=== PATIENT | male | born 2000 | race Hispanic/Latino ===

== ENCOUNTER 2022-04-24 20:33 | Emergency (ER) | payer OTHER ==
[~2022-04-24] VITALS: Ht 162.6 cm; Wt 65.8 kg
[2022-04-24] MEDS ORDERED: KETOROLAC 60 MG VIAL (30MG/ML) IM ONE (21:30)
[2022-04-24] MEDS ORDERED: IBUP-2071 PO (22:01)
[2022-04-24 22:15] VITALS: BP 125/63
== END 2022-04-24 22:18 | disposition home or self-care (01) ==
LOC: EDH 20:33
DX: S00.33XA Contusion of nose, initial encounter (principal); S80.01XA Contusion of right knee, initial encounter; V49.59XA Passenger injured in collision with other motor vehicles in traffic accident, initial encounter; Y93.89 Activity, other specified; Y92.413 State road as the place of occurrence of the external cause; Y99.8 Other external cause status
CPT/HCPCS: 99284; 73562; 70160; 96372; J1885